=== PATIENT | male | born 1995 | race American Indian/Alaskan Native ===

== ENCOUNTER → 2020-08-19 13:39 | Outpatient (BNVA) | payer OTHER, SELFPAY | PROVIDERS: Visit Provider Internal Medicine | DX: S39.012A Strain of muscle, fascia and tendon of lower back, initial encounter (principal); X50.0XXA Overexertion from strenuous movement or load, initial encounter | CPT/HCPCS: 99203 ==

== ENCOUNTER → 2020-08-22 13:41 | Outpatient (BNVA) | payer OTHER, SELFPAY | PROVIDERS: Visit Provider Physician Assistant Medical | DX: S39.012A Strain of muscle, fascia and tendon of lower back, initial encounter (principal); X50.9XXA Other and unspecified overexertion or strenuous movements or postures, initial encounter | CPT/HCPCS: 99213 ==

== ENCOUNTER → 2020-08-27 09:15 | Outpatient (BNVA) | payer OTHER, SELFPAY | PROVIDERS: Visit Provider Physician Assistant Medical | DX: S39.012A Strain of muscle, fascia and tendon of lower back, initial encounter (principal); X58.XXXA Exposure to other specified factors, initial encounter | CPT/HCPCS: 99213 ==

== ENCOUNTER → 2020-09-09 10:05 | Outpatient (BNVA) | payer OTHER, SELFPAY | PROVIDERS: Visit Provider Physician Assistant Medical | DX: S39.012D Strain of muscle, fascia and tendon of lower back, subsequent encounter (principal); X58.XXXD Exposure to other specified factors, subsequent encounter; M54.16 Radiculopathy, lumbar region | CPT/HCPCS: 99213 ==

== ENCOUNTER → 2020-09-16 09:08 | Outpatient (BNVA) | payer OTHER, SELFPAY | PROVIDERS: Visit Provider Physician Assistant Medical | DX: S39.012D Strain of muscle, fascia and tendon of lower back, subsequent encounter (principal); X58.XXXD Exposure to other specified factors, subsequent encounter; M54.16 Radiculopathy, lumbar region | CPT/HCPCS: 99213 ==

== ENCOUNTER 2020-09-23 17:00 | Outpatient (RCR) | payer OTHER, SELFPAY ==
--- NOTE | 2020-09-11 09:51 | MHC.PT.EP ---
[facility] [place] [facility] [place] [facility] [place] [facility] [address] Jerry Broussard [address] [phone] F: [phone] F: [phone] F: [phone] F: [phone] Physical Therapy Plan of Care Date of Evaluation: Date of Surgery: Diagnosis: Lumbar Strain and Spasm Assessment: Pt is a 25yo M who presents to PT s/p injuring his low back after lifting and lowering a pallet at work. Pt presents with current impairments in pain, ROM, strength, soft tissue restrictions, endurance, posture, and body mechanics. He has occasional radiating symptoms into LLE that centralize with extension activities. His signs and symptoms may be consistent with lumbar radiculopathy along with lumbar strain. He is limited functionally by lifting, bending, squatting, prolonged standing, ambulation, and sleeping. He is an excellent candidate for skilled PT services to address current impairments and facilitate return to PLOF. Frequency and Duration: The patient will be seen 2x/week, 4 weeks Short Term Goals: Pt will be I with HEP to promote self management of symptoms Pt will demonstrate centralization of symptoms [employer] Goals: Pt will demonstrate full, pain-free ROM in all planes of lumbar spine Pt will tolerate standing >1 hour with pain-free to assist with work tasks Pt will demonstrate improved body mechanics with squatting and lifting 100% of the time Treatment Plan: Modalities to reduce pain, spasms and effusion. Manual therapy to restore motion and function. Therapeutic exercise to improve strength and flexibility. Neuromuscular re-education for posture and balance. Therapeutic activities to return to functional activities of daily living. Electronically signed by: Luna Hughes, PT, DPT Please sign and return to therapist. Thank you for your referral.
--- NOTE | 2020-10-14 12:38 | MHC.PT.DC ---
[facility] [place] [facility] [place] [facility] [place] [facility] [address] Jerry Broussard [address] [phone] F: [phone] F: [phone] F: [phone] F: [phone] Physical Therapy Discharge Report Diagnosis: Lumbar Strain and Spasm Date of Surgery: Date of Evaluation: 09/10/20 Date of Discharge: Treatments to Date: 4 Cancellations to Date: 2 No Shows to Date: 3 Discharge Status: Improved Function Visit Non-compliance Discharge Summary: Pt last attended appointment was 09/23/20 and he was progressing well towards his goals at that time. Since his last attended appointment he has had 2 cancellations and 3 no-shows. Pt is being D/C from skilled PT services due to visit non-compliance and per [facility] attendance policy. Current level of function unknown at this time. Electronically signed by: Luna Hughes, PT, DPT Please sign and return to therapist. Thank you for your referral.
== END 2020-10-14 12:37 | disposition home or self-care (01) ==
LOC: HO.PT 17:00
PROVIDERS: Visit Provider Physician Assistant Medical
DX: S39.012D Strain of muscle, fascia and tendon of lower back, subsequent encounter (principal); M62.830 Muscle spasm of back
CPT/HCPCS: 97014; 97110; 97112; 97140; 97161; 97530